=== PATIENT | female | born 1990 | race Caucasian/White ===

== ENCOUNTER 2017-11-27 06:21 | Day surgery (SDC) | payer OTHER ==
[2017-11-26 15:20] VITALS: BMI 38.9
[~2017-11-27 06:21] MED LIST: EPINEPHrine 0.3 MG, Dextrose 50% 3 ML in Ophthalmic Irrigation Solution 500 ML FS SCH
[2017-11-27] MEDS ORDERED: Phenylephrine 2.5% Ophth Soln 5 ML BOT ONE (06:55)
[2017-11-27] MEDS ORDERED: Cyclopentolate 1% Opth Drop 2 ML BOT ONE (06:55)
[2017-11-27 08:11] LABS: BHCG - Serum Negative (NEGATIVE); Pregs Control Background? CLEAR/WHITE (CLR/WHITE); Pregs Control Bar Appear? YES (CONTROL BAR)
[2017-11-27] MEDS ORDERED: Fentanyl 100 MCG/2 ML VIAL ONE (08:20)
[2017-11-27] MEDS ORDERED: Midazolam HCl 2 mg/2 ml Vial ONE (08:20)
[2017-11-27] MEDS ORDERED: Lidocaine 2% 10 ML INJ ONE (08:20)
[2017-11-27] MEDS ORDERED: PROPOFOL 20 ML ONE (08:20)
[2017-11-27] MEDS ORDERED: Ondansetron HCl/PF 4 MG/2 ML Vial ONE ×2 (08:20→16:31)
--- NOTE | 2017-11-27 12:39 | OP ---
DATE OF SURGERY: 11/27/2017 PREOPERATIVE DIAGNOSIS: Tractional retinal detachment, right eye. POSTOPERATIVE DIAGNOSIS: Tractional retinal detachment, right eye. PROCEDURE: Pars plana vitrectomy, tractional retinal detachment repair, right eye. SURGEON: Casey Taylor M.D. ANESTHESIA: General endotracheal anesthesia. COMPLICATIONS: None. PROCEDURE IN DETAIL: The patient was identified in the preoperative holding area. Appropriate infor med consent for the planned surgical procedure on the right eye had been obtained. The patient was t ransported to the operative suite where appropriate cardiopulmonary monitoring was established. Gene ral endotracheal anesthesia was obtained. Local anesthesia was obtained using retrobulbar block. Th e eye was prepped and draped in the usual sterile manner for ophthalmic surgery on the right eye. Li d speculum was placed in the right eye. Trocars were placed supratemporally, inferotemporally, and s upranasally. Infusion line was placed inferotemporally. Light pipe and vitreous cutter were inserte d into the eye. Core of vitrectomy was performed. Extensive tractional proliferation on the retina was observed. This was dissected 360 degrees using forceps, scissors, vitreous cutter, light pipe, a nd peeled into the retinal periphery. Several small holes were generated in the mid periphery and th e hole posteriorly was created to drain subretinal fluid. Subretinal fluid was drained, and 360 lase r was placed in the periphery. Silicone oil was used to fill the eye. Sclerotomies were sutured poly sed. Retrobulbar Kenalog and subconjunctival Ancef were placed. Atropine and antibiotic ointment we re placed, and the eye was patched and shielded. The patient was taken to the postoperative recovery unit in good condition, having suffered no immediate perioperative complications. The patient was i nstructed to keep patch and shield on, avoid lifting or bending, and follow up in the morning with Dr Néstor Taylor.
[2017-11-27] MEDS ORDERED: Lidocaine 1% PF 5 ML VIAL ONE (16:31)
[2017-11-27] MEDS ORDERED: PROPOFOL 200 MG/20 ML VIAL ONE (16:31)
== END 2017-11-27 08:08 | disposition home or self-care (01) ==
LOC: SDC 06:21
PROVIDERS: ATTEND Ophthalmology Retina Specialist
PROC: 08T43ZZ Resection of Right Vitreous, Percutaneous Approach (ICD-10-PCS; principal; 2017-11-27)
DX: H33.41 Traction detachment of retina, right eye (principal); Z88.8 Allergy status to other drugs, medicaments and biological substances
CPT/HCPCS: 36416; 84703; C1814; J0171; J2001; J2250; J2405; J2704; J3010

== ENCOUNTER 2020-06-19 07:03 | Outpatient (CLI) | payer OTHER ==
[2020-06-20 12:09] LABS: SARS-CoV-2 MS2 Positive; SARS-CoV-2 N Gene Negative; SARS-CoV-2 S Gene Negative; SARS-CoV-2 by NAA Not Detected (NotDetected); SARS-CoV-2 orf1ab Negative
== END 2020-06-19 07:04 | disposition home or self-care (01) ==
LOC: LABBT 07:03
PROVIDERS: ATTEND Ophthalmology Retina Specialist
DX: H35.372 Puckering of macula, left eye (principal); H43.392 Other vitreous opacities, left eye; H54.7 Unspecified visual loss; Z20.828 Contact with and (suspected) exposure to other viral communicable diseases
CPT/HCPCS: 87635; U0003

== ENCOUNTER 2020-06-22 05:41 | Day surgery (SDC) | payer OTHER ==
[2020-06-21 10:48] VITALS: BMI 31.3
[2020-06-22] MEDS ORDERED: Fluorouracil 100 MG, Enoxaparin Sodium 25 MG, EPINEPHrine 0.3 MG, Dextrose 50% 3 ML in ... IRR SCH (06:00)
[2020-06-22] MEDS ORDERED: Cyclopentolate 1% Opth Drop 2 ML BOT ONE (06:07)
[2020-06-22] MEDS ORDERED: Phenylephrine 2.5% Ophth Soln 5 ML BOT ONE (06:07)
[2020-06-22] MEDS ORDERED: PROPOFOL 20 ML ONE (06:31)
[2020-06-22] MEDS ORDERED: Midazolam HCl 2 mg/2 ml Vial ONE (06:31)
[2020-06-22] MEDS ORDERED: Fentanyl 100 MCG/2 ML VIAL ONE (06:31)
[2020-06-22] MEDS ORDERED: Lidocaine 4% PF 5 ML AMP ONE (11:13)
[2020-06-22] MEDS ORDERED: Triamcinolone 40 MG/ML VIAL ONE (11:13)
[2020-06-22] MEDS ORDERED: CEFAZOLIN 1 GM VIAL ONE (11:13)
[2020-06-22] MEDS ORDERED: Lidocaine 1% PF 5 ML VIAL ONE (11:13)
[2020-06-22] MEDS ORDERED: Maxitrol 0.1% Opth Oint 3.5 GM TUBE ONE (11:13)
[2020-06-22] MEDS ORDERED: Bupivacaine PF 0.75% SDV 10 ML ONE (11:13)
--- NOTE | 2020-06-23 14:56 | OP ---
DATE OF PROCEDURE: 06/22/2020 PREOPERATIVE DIAGNOSES: Vitreous opacification, epiretinal membrane. POSTOPERATIVE DIAGNOSES: Vitreous opacification, epiretinal membrane. PROCEDURE PERFORMED: Pars plana vitrectomy and membrane peel, right eye. ANESTHESIA: Local with monitored anesthesia care. PROCEDURE IN DETAIL: The patient was identified in the preoperative holding area. Appropriate informed consent for the planned surgical procedure on the right eye had been obtained. The patient was transported to the operative suite, where appropriate cardiopulmonary monitoring was established and local anesthesia was obtained using retrobulbar modified Van Lint lid block using 50:50 mixture of 4% lidocaine and 0.75% bupivacaine. The patient was prepped and draped in the usual sterile manner for ophthalmic surgery on the right eye. Lid speculum was placed in the right eye. A 27-gauge trocar was placed through the conjunctivae and sclerae superotemporally, inferotemporally, and superonasally. Infusion line was placed inferotemporally. A 20-gauge sclerotomy was created superotemporally and viscous fluid removal device was inserted into the eye. Silicone oil was removed and the superior sclerotomy was suture closed. Attention was turned to the posterior epiretinal membrane. A dense epiretinal membrane was identified. This was elevated using a membrane scraper and end-gripping forceps and successfully peeled. No holes, breaks, or tears were identified. Sclerotomy suture was closed with 6-0 plain gut suture. Retrobulbar Kenalog and subconjunctival Ancef were placed and antibiotic ointment was placed. The eye was patched and shielded. The patient was taken to the postoperative recovery unit in good condition, having suffered no immediate perioperative complications. The patient was instructed to keep patch and shield on, avoid lifting or bending. Followup appointment with Dr. Taylor. Job ID: [id number]
== END 2020-06-22 08:35 | disposition home or self-care (01) ==
LOC: SDC 05:41
PROVIDERS: ATTEND Ophthalmology Retina Specialist
PROC: 08T43ZZ Resection of Right Vitreous, Percutaneous Approach (ICD-10-PCS; principal; 2020-06-22)
PROC: 08NE3ZZ Release Right Retina, Percutaneous Approach (ICD-10-PCS; principal; 2020-06-22)
DX: H35.371 Puckering of macula, right eye (principal); H43.391 Other vitreous opacities, right eye; Z79.4 Long term (current) use of insulin; Z88.8 Allergy status to other drugs, medicaments and biological substances; Z91.018 Allergy to other foods
CPT/HCPCS: 36416; J0171; J0690; J1650; J2001; J2250; J2704; J3010; J3301; J3490; J9190

== ENCOUNTER 2025-04-22 12:44 | Outpatient (CLI) | payer BC | END 2025-04-22 12:45 | disposition home or self-care (01) | LOC: MRI 12:44 | PROVIDERS: ATTEND Nurse Practitioner Family | DX: M25.512 Pain in left shoulder (principal); M67.814 Other specified disorders of tendon, left shoulder; S46.912A Strain of unspecified muscle, fascia and tendon at shoulder and upper arm level, left arm, initial encounter; S46.112A Strain of muscle, fascia and tendon of long head of biceps, left arm, initial encounter ==

== ENCOUNTER 2025-06-25 18:36 | Emergency (ER) | payer BC ==
[2025-06-25 19:12] LABS: Bacteria/HPF None Seen HPF (None Seen); CAUTI Indications for Culture Pelvic or flank pain; Glucose, Urine (Dipstick) 70 mg/dL (Negative); Leukocyte Negative Leu/uL (Negative); Protein, Urine (Dipstick) 30 mg/dL (Neg-Trace); RBC/HPF 0-3 HPF (0-3); Specific Gravity, Urine 1.022 (1.002-1.036); WBC/HPF 0-3 HPF (0-3)
[2025-06-25 19:14] LABS: Urine Culture Reflex No No
== END 2025-06-25 20:38 | disposition home or self-care (01) ==
LOC: ERS 18:36
DX: M54.50 Low back pain, unspecified (principal); E10.9 Type 1 diabetes mellitus without complications; Z79.4 Long term (current) use of insulin
CPT/HCPCS: 81001; 99283